=== PATIENT | female | born 1940 | race Caucasian/White ===

== ENCOUNTER 2017-09-14 09:01 | Outpatient (RCR) | payer MEDICARE, SELFPAY ==
--- NOTE | 2017-09-14 09:30 | WC ---
PT W/ DEMENTIA. COGNITION IS QUESTIONNABLE. UNABLE TO ANSWER QUESTIONS R/T RISK ASSESSMENTS. WILL CALL POA/ TO SIGN PAPERS.
[2017-09-14 09:34] VITALS: BP 98/70; PULSE 91; RESP 16; TEMP 37
--- NOTE | 2017-09-14 17:56 | PN.PCM_ITS ---
Type of Wound Date of Service: 09/14/17 Chief Complaint: Sacral pressure sore, Stage IV. History of Wound: Surgery 08/25/17 - Excision sacral pressure sore with right buttock extension, Stage IV, with partial ostectomy for osteomyelitis. Wound care - VAC. Operative culture - soft tissue - Klebsiella pneumoniae, Morganella morganii, and Bacteroides. She is being treated with Ceftriaxone and Flagyl until 10/06/17. Bone - negative. Pathology - negative for osteomyelitis. Prealbumin from 08/25/17 was 5.3. Patient has a feeding tube. 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 Progress of Wound: Recent surgery on 08/25/17. - Physical Exam Vital Signs Temp Pulse Resp BP 98.6 F 91 16 98/70 09/14/17 09:34 09/14/17 09:34 09/14/17 09:34 09/14/17 09:34 Wound Measurements and Assessment WC - Nurse 1 - General Ulcer Measurement Start: 09/14/17 09:28 Freq: Status: Active Protocol: Activity Type Activity Date Activity User E-Sign Co-Sign Detail Recorded Client Recorded Date Recorded By Document 09/14/17 09:34 [facility] [id number] 09/14/17 09:55 BMF 09/14/17 09:34 Wound Center Nurse 1 [Ulcer Assessment Protocol: ALEJO.WD.LOC] #1- SACRAL AREA PRESSURE INJURY (STAGE 4 POST OP) -Combined with other wound No -Current Size (cm) - Length 7.3 -Current Size (cm) - Width 3.5 -Current Size (cm) - Depth 3.8 -Total Square Cm 25.55 -Date of Last Picture (Recall this 09/14/17 field) -Photo Taken Yes -Epithelialization None Present -Tunneling No -Undermining/Tunneling Yes -Undermining/Tunneling Starts (O' 7 clock) -Undermining/Tunneling Ends (O'clock) 12 -Maximum Distance (cm) 3.6 -Classification - Pressure Ulcer Stage 4 -Wound Margin Distinct, Outline Attached -Granulation Amt Medium (34-66%) -Granulation Quality Pale [place] -Necrosis Amt Medium (34-66%) -Necrotic Tissue Type Adherent Slough -Texture (Candy-wound Skin Appearance) Scarring Rash -Moisture (Candy-wound Skin Appearance Assessed ) -Color (Candy-wound Skin Appearance) Erythema -Temperature (Candy-wound Skin No Abnormality Appearance) (Pt Warm) -Tenderness on Palpation (Candy-wound Yes Skin Appearance) -Ulcer Cleansing Wound Cleanser -Foul Odor after Cleansing No -Anesthetic Used 4% Lidocaine Solution - Nurse 2 - General Ulcer CM Notes Start: 09/14/17 09:28 Freq: Status: Active Protocol: Activity Type Activity Date Activity User E-Sign Co-Sign Detail Recorded Client Recorded Date Recorded By Document 09/14/17 10:47 NISHA [id number] 09/14/17 10:48 NISHA 09/14/17 10:47 Wound Center Nurse 2 [Procedure/Treatment] -Time 10:47 -Correct Patient Yes -Correct Side, Site, Position Yes -Correct Procedure Yes -Procedure Performed Yes -Type of Procedure Debridement -Clinical Debridement Muscle -Post Debridement Size (cm) - Length 7.5 -Post Debridement Size (cm) - Width 3.5 -Post Debridement Size (cm) - Depth 3.8 -Total Square Cm 26.25 -Wound/Ulcer Outcome Not Healed -Ulcer Cleansing Rinsed/ Irrigated with Saline -Foul Odor after Cleansing No -Bioengineered Tissue No -Cetacaine [place] No -Bleeding Controlled with Pressure -Treatment Response Procedure Tolerated Well [See Physician Procedure note for Specifics] Pain Scale: 0-10 Numeric [Pain] -Is Patient Pain Free? Yes Debridement Note Post-Debridement Measurements/Treatment - Nurse 2 - General Ulcer CM Notes Start: 09/14/17 09:28 Freq: Status: Active Protocol: Activity Type Activity Date Activity User E-Sign Co-Sign Detail Recorded Client Recorded Date Recorded By Document 09/14/17 10:47 [id number] 09/14/17 10:48 NISHA 09/14/17 10:47 Wound Center Nurse 2 #1- SACRAL AREA PRESSURE INJURY (STAGE 4 POST OP) -Time 10:47 -Correct Patient Yes -Correct Side, Site, Position Yes -Correct Procedure Yes -Procedure Performed Yes -Type of Procedure Debridement -Clinical Debridement Muscle -Post Debridement Size (cm) - Length 7.5 -Post Debridement Size (cm) - Width 3.5 -Post Debridement Size (cm) - Depth 3.8 -Total Square Cm 26.25 -Wound/Ulcer Outcome Not Healed -Ulcer Cleansing Rinsed/ Irrigated with Saline -Foul Odor after Cleansing No -Bioengineered Tissue No -Cetacaine [place] No -Bleeding Controlled with Pressure -Treatment Response Procedure Tolerated Well Pain Scale: 0-10 Numeric Is Patient Pain Free? Yes Wound debrided: #1 Sacral area. Laterality: Not Applicable Wound Grade/Stage: IV. Type of Debridement: Excisional debridement Anesthesia Used: 4% Lidocaine Solution Depth: Down to and including healthy tissue, in the subcutaneous layer, to muscle - bone is exposed but not debrided. Percentage of wound debrided: 100 Instrument Used: 7mm curette Tissue Removed: subcutaneous tissue and muscle. Severity: Fat Layer Exposed - muscle is exposed. bone is exposed but not debrided. Amount of bleeding with debridement: Mild Bleeding Controlled with: Pressure Patient tolerated procedure well Assessment/Plan Assessment: 1. 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 2. MS. 3. s/p excision sacral pressure sore with right buttock extension, Stage IV, with partial ostectomy for osteomyelitis. Plan: Continue the VAC to the sacral pressure sore. Continue IV Ceftriaxone and Flagyl until 10/06/17. Will pull the PICC line at her next visit. Continue tube feedings. Followup 4 weeks.
== END 2017-09-27 23:59 ==
LOC: WC 09:01
PROVIDERS: Family Provider Internal Medicine; PCP Internal Medicine; Visit Provider Surgery
DX: L89.154 Pressure ulcer of sacral region, stage 4 (principal); G35 Multiple sclerosis
CPT/HCPCS: 11043; 11046; 97605; 99213; G0463

== ENCOUNTER 2017-10-19 08:46 | Outpatient (RCR) | payer MEDICARE, SELFPAY ==
[2017-09-28 01:31] VITALS: BP 98/70; PULSE 91; RESP 16; TEMP 37
[2017-10-19 09:29] VITALS: BP 88/39; PULSE 89; RESP 16; TEMP 36.9
--- NOTE | 2017-10-19 15:18 | PCM.WC.PN ---
Type of Wound Date of Service: 10/19/17 Chief Complaint: Sacral pressure sore, Stage IV, and right medial leg ulcer. History of Wound: Surgery 08/25/17 - Excision sacral pressure sore with right buttock extension, Stage IV, with partial ostectomy for osteomyelitis. Wound care - VAC. Operative culture - soft tissue - Klebsiella pneumoniae, Morganella morganii, and Bacteroides. She was treated with Ceftriaxone and Flagyl until 10/06/17. The PICC line was pulled. Bone - negative. Pathology - negative for osteomyelitis. Prealbumin from 08/25/17 was 5.3. Patient has a feeding tube. 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 It was noted there was a new onset right medial leg ulcer. Progress of Wound: Improved sacral pressure sore. New onset right medial leg ulcer. - Physical Exam Vital Signs Temp Pulse Resp BP 98.4 F 89 16 88/39 L 10/19/17 09:29 10/19/17 09:29 10/19/17 09:29 10/19/17 09:29 Wound Measurements and Assessment - Nurse 1 - General Ulcer Measurement Start: 10/19/17 09:29 Freq: Status: Active Protocol: Activity Type Activity Date Activity User E-Sign Co-Sign Detail Recorded Client Recorded Date Recorded By Document 10/19/17 09:29 [facility] [id number] 10/19/17 09:46 [facility] 10/19/17 09:29 Wound Center Nurse 1 [Ulcer Assessment Protocol: WC.WD.LOC] #2- RT MEDIAL LEG -Combined with other wound No -Current Size (cm) - Length 1.9 -Current Size (cm) - Width 0.6 -Current Size (cm) - Depth 0.1 -Total Square Cm 1.14 -Date of Last Picture (Recall this 10/19/17 field) -Photo Taken Yes -Epithelialization None Present -Tunneling No -Undermining/Tunneling No -Exudate Amt None Present (0 %) -Wound Margin Distinct, Outline Attached -Granulation Amt Small (1-33%) -Granulation Quality Red -Slough/Fibrin Yes -Necrosis Amt Large (67-100%) -Necrotic Tissue Type Adherent Slough -Structure Exposed N/A -Texture (Candy-wound Skin Appearance) Scarring -Moisture (Candy-wound Skin Appearance Dry/Scaly ) -Color (Candy-wound Skin Appearance) Erythema -Temperature (Candy-wound Skin No Abnormality Appearance) (Pt Warm) -Tenderness on Palpation (Candy-wound Yes Skin Appearance) -Ulcer Cleansing Rinsed/ Irrigated with Saline -Foul Odor after Cleansing No -Anesthetic Used 4% Lidocaine Solution #1- SACRAL AREA PRESSURE INJURY (STAGE 4 POST OP) -Combined with other wound No -Current Size (cm) - Length 4.3 -Current Size (cm) - Width 4.5 -Current Size (cm) - Depth 1.1 -Total Square Cm 19.35 -Date of Last Picture (Recall this 10/19/17 field) -Photo Taken Yes -Epithelialization None Present -Tunneling No -Undermining/Tunneling Yes -Undermining/Tunneling Starts (O' 8 clock) -Undermining/Tunneling Ends (O'clock) 12 -Maximum Distance (cm) 2.7 -Exudate Amt None Present (0 %) -Wound Margin Distinct, Outline Attached -Granulation Amt Large (67-100%) -Granulation Quality [place] -Slough/Fibrin Yes -Necrosis Amt Small (1-33%) -Necrotic Tissue Type Adherent Slough -Texture (Candy-wound Skin Appearance) Scarring -Moisture (Candy-wound Skin Appearance Assessed ) -Color (Candy-wound Skin Appearance) Assessed -Temperature (Candy-wound Skin No Abnormality Appearance) (Pt Warm) -Tenderness on Palpation (Candy-wound Yes Skin Appearance) -Ulcer Cleansing Rinsed/ Irrigated with Saline -Foul Odor after Cleansing No -Anesthetic Used 4% Lidocaine Solution WC - Nurse 2 - General Ulcer CM Notes Start: 10/19/17 09:29 Freq: Status: Active Protocol: Activity Type Activity Date Activity User E-Sign Co-Sign Detail Recorded Client Recorded Date Recorded By Document 10/19/17 10:25 NISHA [id number] 10/19/17 10:34 NISHA 10/19/17 10:25 Wound Center Nurse 2 [Procedure/Treatment] #2- RT MEDIAL LEG -Time 10:34 -Correct Patient Yes -Correct Side, Site, Position Yes -Correct Procedure Yes -Procedure Performed Yes -Type of Procedure Debridement -Clinical Debridement Subcutaneous -Post Debridement Size (cm) - Length 2.0 -Post Debridement Size (cm) - Width 0.7 -Post Debridement Size (cm) - Depth 0.1 -Total Square Cm 1.40 -Wound/Ulcer Outcome Not Healed -Ulcer Cleansing Rinsed/ Irrigated with Saline -Foul Odor after Cleansing No -Bioengineered Tissue No -Cetacaine [place] No -Bleeding Controlled with Pressure -Treatment Response Procedure Tolerated Well #1- SACRAL AREA PRESSURE INJURY (STAGE 4 POST OP) -Time 10:25 -Correct Patient Yes -Correct Side, Site, Position Yes -Correct Procedure Yes -Procedure Performed Yes -Type of Procedure Debridement -Clinical Debridement Muscle -Post Debridement Size (cm) - Length 4.4 -Post Debridement Size (cm) - Width 4.5 -Post Debridement Size (cm) - Depth 1.1 -Total Square Cm 19.80 -Wound/Ulcer Outcome Not Healed -Ulcer Cleansing Rinsed/ Irrigated with Saline -Foul Odor after Cleansing No -Bioengineered Tissue No -Cetacaine [place] No -Bleeding Controlled with Pressure -Treatment Response Procedure Tolerated Well [See Physician Procedure note for Specifics] Pain Scale: 0-10 Numeric [Pain] -Is Patient Pain Free? Yes Debridement Note Post-Debridement Measurements/Treatment WC - Nurse 2 - General Ulcer CM Notes Start: 10/19/17 09:29 Freq: Status: Active Protocol: Activity Type Activity Date Activity User E-Sign Co-Sign Detail Recorded Client Recorded Date Recorded By Document 10/19/17 10:25 [id number] 10/19/17 10:34 10/19/17 10:25 Wound Center Nurse 2 #2- RT MEDIAL LEG -Time 10:34 -Correct Patient Yes -Correct Side, Site, Position Yes -Correct Procedure Yes -Procedure Performed Yes -Type of Procedure Debridement -Clinical Debridement Subcutaneous -Post Debridement Size (cm) - Length 2.0 -Post Debridement Size (cm) - Width 0.7 -Post Debridement Size (cm) - Depth 0.1 -Total Square Cm 1.40 -Wound/Ulcer Outcome Not Healed -Ulcer Cleansing Rinsed/ Irrigated with Saline -Foul Odor after Cleansing No -Bioengineered Tissue No -Cetacaine [place] No -Bleeding Controlled with Pressure -Treatment Response Procedure Tolerated Well #1- SACRAL AREA PRESSURE INJURY (STAGE 4 POST OP) -Time 10:25 -Correct Patient Yes -Correct Side, Site, Position Yes -Correct Procedure Yes -Procedure Performed Yes -Type of Procedure Debridement -Clinical Debridement Muscle -Post Debridement Size (cm) - Length 4.4 -Post Debridement Size (cm) - Width 4.5 -Post Debridement Size (cm) - Depth 1.1 -Total Square Cm 19.80 -Wound/Ulcer Outcome Not Healed -Ulcer Cleansing Rinsed/ Irrigated with Saline -Foul Odor after Cleansing No -Bioengineered Tissue No -Cetacaine [place] No -Bleeding Controlled with Pressure -Treatment Response Procedure Tolerated Well Pain Scale: 0-10 Numeric Is Patient Pain Free? Yes Wound debrided: #1 Sacral area. Laterality: Not Applicable Wound Grade/Stage: IV. Type of Debridement: Excisional debridement Anesthesia Used: 4% Lidocaine Solution Depth: Down to and including healthy tissue, in the subcutaneous layer, to muscle Percentage of wound debrided: 100 Instrument Used: 7mm curette Tissue Removed: subcutaneous tissue and muscle. Severity: Fat Layer Exposed - muscle is exposed. Amount of bleeding with debridement: Mild Bleeding Controlled with: Pressure Patient tolerated procedure well - Additional Wound Wound debrided: #2 Right medial leg. Laterality: Right Wound Grade/Stage: 2. Type of Debridement: Excisional debridement Anesthesia Used: 4% Lidocaine Solution Depth: Down to and including healthy tissue, in the subcutaneous layer Percentage of wound debrided: 100 Instrument Used: 5mm curette Tissue Removed: subcutaneous tissue. Severity: Fat Layer Exposed Amount of bleeding with debridement: Mild Bleeding Controlled with: Pressure Patient tolerated procedure: Patient tolerated procedure well - A wound culture was obtained today. Assessment/Plan Assessment: 1. 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 2. MS. 3. s/p excision sacral pressure sore with right buttock extension, Stage IV, with partial ostectomy for osteomyelitis. 4. Nonhealing ulcer right medial leg. Plan: Continue the VAC to the sacral pressure sore. The IV Ceftriaxone and Flagyl have finished on 10/06/17. The PICC line has been pulled. Continue tube feedings. For the right medial leg ulcer, a culture was obtained. A positive culture will necessitate antibiotic therapy. Will start Christel daily dressing changes to the right medial leg ulcer. Discussed possible muscle flap closure with the patient's . He will think about it. He wants me to discuss with her PCP, Dr. Cooney. Followup 4 weeks.
== END 2017-10-28 23:59 ==
LOC: WC 08:46
PROVIDERS: Family Provider Internal Medicine; PCP Internal Medicine; Visit Provider Surgery
DX: L89.154 Pressure ulcer of sacral region, stage 4 (principal); L97.912 Non-pressure chronic ulcer of unspecified part of right lower leg with fat layer exposed; G35 Multiple sclerosis
CPT/HCPCS: 11042; 11043; 87070; 87075; 87077; 87186; 87205; 97605